=== PATIENT | male | born 1985 | race Caucasian/White ===

== ENCOUNTER 2019-02-03 17:03 | Emergency (ER) | payer OTHER, SELFPAY ==
[2018-12-29 08:33] VITALS: BMI 22.8
[2019-02-03 17:04] VITALS: BP 129/72; PULSE 81; RESP 16; TEMP 36.6; O2SAT 98; BMI 23.7
--- NOTE | 2019-02-03 17:27 | US_ITS ---
STUDY: SCROTUM ULTRASOUND REASON FOR EXAM: Male, 33 years old. PAIN-RT SIDED S/P VASECTOMY 01/28/19 TECHNIQUE: Ultrasound evaluation of the scrotum was performed with color Doppler and static atkins-scale imaging. COMPARISON: None. FINDINGS: RIGHT TESTICLE INTRATESTICULAR: There is a normal size of the right testicle. The right testicle measures 3.9 x 2.9 x 2.0 cm. There is a homogenous echotexture. There is normal arterial and normal venous vascularity. There is no demonstrated right testicular mass or cyst. EXTRATESTICULAR: The epididymis is normal in size. The epididymis head measures 0.8 x 0.9 x 1.0 cm. There is normal vascularity of the epididymis. There is a 4 mm epididymal cyst. There is no demonstrated hydrocele. There is no demonstrated varicocele. There is a complex structure within the superior aspect of the scrotum possibly related to a complex collection or hematoma. LEFT TESTICLE Status post orchiectomy. US/Testicular with Arterial Flow IMPRESSION: Complex area within the superior aspect on the right side of the scrotum possibly related to a complex collection or hematoma. Electronically Signed: Hema Davidson DO at 19:09 EST Tel [phone], Service support ,
--- NOTE | 2019-02-03 17:27 | ED.VIS.GEN ---
History of Present Illness Chief Complaint: Male Pain/Injury Informant: Patient Onset: Days - 2 Context: Gradual Onset Timing: Continuous Quality: sore Location: Right groin, at inguinal area just above scrotum Current Severity: Moderate Maximum Severity: Moderate Worsened by: Walking, palpation Relieved by: Remaining still. Ice, NSAIDs, Tylenol not helping. Narrative: Patient had vasectomy 7 days ago. His surgeon is on vacation and he has not contacted anyone else about this. He has been having postoperative pain ever since and it really has not gotten any better despite doing what he has been told including rest, ice, ibuprofen, and Tylenol. He denies any trouble urinating. He denies any pain where the testicle is distally, closer to the incision, but he has had a new bruising started yesterday along with significant increase in pain more proximally in this hemiscrotum on the right. He had an undescended left testicle and had an orchiectomy when he was little. Past Medical History - Allergies and Home Meds Allergies/Adverse Reactions: Allergies No Known Allergies Allergy (Unverified 12/29/18 08:32) Past Medical History: None Surgical History: - - Left orchiectomy. Vasectomy. Lives: Spouse/ Significant Other Smoking Status: Never smoker Review of Systems General: Denies: Chills, Fever, Sweats Gastrointestinal: Reports: - - Right groin/hemiscrotum pain. Denies: Nausea, Vomiting Genitourinary: Denies: Dysuria, Hematuria, Frequency Musculoskeletal: Denies: Neck pain, Back pain, Extremity Pain Skin: Reports: - - Bruising right hemiscrotum. See HPI. Neurological: Denies: Headache, Weakness, Numbness Physical Exam Vital Signs/Narrative: Vital Signs Temp Pulse Resp BP Pulse Ox 02/03/19 17:04 97.9 F 81 16 129/72 H 98 Inital Vital Signs reviewed: Yes General: Well nourished, Well developed, No Acute Distress Head: Normocephalic, Atraumatic : - - He is status post left orchiectomy. Penis is normal-appearing. Normal cremasteric on the right. Skin: Normal color, No rash, - - Significant acute purpuric bruising to the right hemiscrotum, worse proximally which is swollen, there is firm hematoma palpable, all of which is tender in the right inguinal area and into the proximal right hemiscrotum. The testicle is very mildly tender, much less so than the more proximal areas. The surgical incision appears benign, healing well, no sign of infection or dehiscence. There is some mild bruising in the proximal left hemiscrotum as well, this is nontender. Neurological: Alert, Oriented x3, Cranial nerves II-XII grossly intact, Normal Strength, Normal Sensation Psychological: Normal affect, Normal Mood Diagnostic/Tx/Re-eval Clinical Impression(s) from Imaging Studies Testicular Ultrasound 02/03/19 17:27 IMPRESSION: Complex area within the superior aspect on the right side of the scrotum possibly related to a complex collection or hematoma. Electronically Signed: Hema Davidson DO at 19:09 EST Tel [phone], Service support , - Medical Decision Making There is no one automation tender for urology to discuss this with. My feeling is that the testicle is probably fine, and he has some delayed postoperative bleeding from somewhere in the right hemiscrotum, likely responsible for the increased bruising suddenly, as well as increased pain. I think he very unlikely has a testicular problem here, however I have no other way to evaluate this other than ultrasound, and the tech must be called in since it is a holiday. Ultrasound was obtained, and shows complex area consistent with hematoma, which is consistent with my clinical diagnosis as above. Patient was reassured. He should follow-up with urology as soon as they are available. He will be offered something more for pain. ED Disposition - Plan for ED Patient: Disposition: Home or Assisted Living Diagnosis: Nontraumatic hematoma of scrotum Instructions: CONTUSION, Testicles or Scrotum Prescriptions: Hydrocodone Bitart/Apap 5-325 [[place] 5MG-325MG] 1 tab PO Q4H PRN PRN 2 Days #12 tab PRN Reason: Pain Prescription Printed Referrals: Bharath Leary MD [STAFF PHYSICIAN] - As soon as possible
== END 2019-02-03 19:46 | disposition home or self-care (01) ==
PROVIDERS: Emergency Provider Emergency Medicine; Family Provider Family Medicine; PCP Family Medicine
DX: R10.31 Right lower quadrant pain (principal); N50.1 Vascular disorders of male genital organs
CPT/HCPCS: 76870; 93976; 99282

== ENCOUNTER → 2020-12-12 16:46 | Outpatient (CLI) | payer OTHER, SELFPAY ==
--- NOTE | 2020-12-12 16:53 | CT_ITS ---
STUDY: CT SOFT TISSUE NECK WITHOUT CONTRAST REASON FOR EXAM: Male, 35 years old. K11.6 RADIATION DOSAGE (If Supplied By Facility): CTDIvol = ( 16.02 ) mGy, DLP = ( 477.97 ) mGycm TECHNIQUE: The patient was scanned in a multi-detector CT scanner. High resolution transaxial imaging was performed without the administration of intravenous contrast material. Sagittal and coronal images were reconstructed. Individualized dose optimization techniques were used for this CT. COMPARISON: None. FINDINGS: Normal bilateral parotid glands. Normal bilateral quality tester spaces. Normal bilateral parapharyngeal spaces. Normal bilateral carotid spaces. Enlargement of the left submandibular gland without discrete mass but there is no contrast. Correlation with ultrasound may be useful to describe a discrete mass within the gland. Normal visualized nasopharynx. Normal retropharyngeal space. Normal perivertebral space. Normal visualized bilateral faucial tonsils. The visualized tongue, tongue base and oropharynx are normal. The visualized cervical lymph nodes (levels I-) are within normal size limits, and maintain normal morphology. There is no demonstrated solid or cystic mass lesion. Normal epiglottis, bilateral vallecula and hypopharynx. The pre-epiglottic and paraglottic adipose spaces are normal. Normal visualized bilateral piriform sinuses, aryepiglottic folds, vocal cords, and arytenoid-cricoid articulations. Normal subglottic trachea. Normal bilateral lobes of the thyroid gland. Normal visualized pulmonary apices. Air-fluid levels in the maxillary sinuses consistent with acute sinusitis. Normal visualized cervical spine. CT/Soft Tissue Neck without Contr IMPRESSION: 1. Enlargement of the left submandibular gland and correlation with ultrasound or CT with contrast would be useful to evaluate for discrete mass. 2. Acute maxillary sinusitis. Electronically Signed: Dimas Nina MD at 9:05 EDT Tel , Service support ,
--- NOTE | 2020-12-15 07:29 | CT_ITS ---
STUDY: CT SOFT TISSUE NECK WITH CONTRAST REASON FOR EXAM: Male, 35 years old. SUBMANDIBULAR RANULA. Cystic mass at the floor the mouth. RADIATION DOSAGE (If Supplied By Facility): CTDIvol = ( 11.91 ) mGy, DLP = ( 470.92 ) mGycm TECHNIQUE: The patient was scanned in a multi-detector CT scanner. High resolution transaxial imaging was performed following intravenous administration of IV 100mL Isovue-370. Sagittal and coronal images were reconstructed. Individualized dose optimization techniques were used for this CT. COMPARISON: Comparison is made with prior study dated 12/12/2020. FINDINGS: Normal bilateral parotid glands. Normal bilateral pipe insulator spaces. Normal bilateral parapharyngeal spaces. Normal bilateral carotid spaces. There is a 3.1 cm x 6 cm x 2.8 cm predominantly cystic mass in the left submandibular space. This extends caudally to the region of the hyoid bone. Normal visualized nasopharynx. Normal retropharyngeal space. Normal perivertebral space. Normal visualized bilateral faucial tonsils. The visualized tongue, tongue base and oropharynx are normal. The visualized cervical lymph nodes (levels I-) are within normal size limits, and maintain normal morphology. There is no demonstrated solid or cystic mass lesion. There is no abnormal contrast enhancement. Normal epiglottis, bilateral vallecula and hypopharynx. The pre-epiglottic and paraglottic adipose spaces are normal. Normal visualized bilateral piriform sinuses, aryepiglottic folds, vocal cords, and arytenoid-cricoid articulations. Normal subglottic trachea. Normal bilateral lobes of the thyroid gland. Normal visualized pulmonary apices. Air fluid level in the left maxillary sinus. Mucosal thickening of the right maxillary sinus. Normal visualized cervical spine. CT/Soft Tissue Neck WITH Contrast IMPRESSION: 3.1 cm x 6 x 2.8 cm nonspecific cystic mass in the left some fibular space. This extends caudally to the region of the hiatal bone on the left side Electronically Signed: Luke Parks MD at 9:15 EDT , Service support ,
== END ==
PROVIDERS: PCP Family Medicine; Referring Provider Dentist Oral and Maxillofacial Surgery; Visit Provider Dentist Oral and Maxillofacial Surgery
DX: K11.6 Mucocele of salivary gland (principal); K09.8 Other cysts of oral region, not elsewhere classified
CPT/HCPCS: 70490; 70491; Q9967

== ENCOUNTER → 2020-12-28 09:03 | Outpatient (CLI) | payer OTHER, SELFPAY ==
--- NOTE | 2020-12-28 | ASPOS_PTH ---
PATIENT: VIRAJ WEBSTER LOC: [facility] U#:[id number] AGE/SX: 39/M ROOM: RE12/28/[address]: Dr. Marty Villareal MD : 1985 BED: DIS: SPEC #: [id number] RECD: 12/28/20 10:00 STATUS: SALO REYNOLDSMelvin #: [id number] JONH: 12/28/20 00:[address]: Marty Villareal DEPT: CYTOLOGY RECD BY: Beata Donald ENTERED: 12/28/20 10:32 SP TYPE: ASP HERE OTHR DR: Dr. Isaiah Penaloza MD Tissues: Neck, NOS Procedures: Surgery Specimen Level IV Cytology Other Fine Needle Asp on Site HEADER OPERATION: Left neck mass, fine needle aspiration PRE-OP DIAGNOSIS: Left neck mass TISSUE SUBMITTED: Left neck mass DIAGNOSIS CYTOLOGY Fine needle aspiration, left neck mass (smears and cell block): Negative for malignant cells. Consistent with benign cyst contents. AM:rachel 12/29/2020 COMMENT The specimen is evaluated at the time of FNA by Dr. Willson. Immediate Evaluation = Consistent with contents of benign cyst. CYTOLOGY STUDY Slides are reviewed. CYTOLOGY GROSS Received is 1 ml of yellow mucoid material labeled with the patient's name, and designated left neck mass. Four imprints and two paps are made from the submitted fluid and the rest is added to CytoLyt for cell block preparation. Submitted for cytology study. / AM:rachel 12/28/2020 TC:5 CPT: 46605, 74020, 50207, 56747
== END ==
PROVIDERS: PCP Family Medicine; Referring Provider Otolaryngology; Visit Provider Otolaryngology
DX: R22.1 Localized swelling, mass and lump, neck (principal)
CPT/HCPCS: 10021; 88161; 88305

== ENCOUNTER 2021-01-29 08:11 | Day surgery (SDC) | payer OTHER, SELFPAY ==
--- NOTE | 2021-01-29 | MISC_PTH ---
PATIENT: VIRAJ WEBSTER LOC: [facility] – [place] U#:[id number] AGE/SX: 35/M ROOM: RE01/29/[address]: Dr. Marty Villareal MD : 1985 BED: DIS: 01/29/2021 SPEC #: [id number] RECD: 01/29/21 13:50 STATUS: SALO REMelvin #: [id number] JONH: 01/29/21 00:[address]: Marty Villareal DEPT: SURGICAL PATHOLOGY RECD BY: Julien Aguila ENTERED: 01/29/21 13:51 SP TYPE: [facility] [place]: Dr. Isaiah Penaloza MD Tissues: Sublingual gland, NOS Procedures: Surgery Specimen Level V HEADER OPERATION: Neck mass excision PRE-OP DIAGNOSIS: Localized swelling, neck mass and lump TISSUE SUBMITTED: Left sublingual gland MICROSCOPIC DIAGNOSIS Left sublingual gland, excision: Consistent with mucocele. 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 AM:rachel 01/30/2021 COMMENT Reference is made to the patient's fine needle aspiration ([id number]) in which contents of benign cyst were identified. MICROSCOPIC DESCRIPTION Slides are reviewed. GROSS DESCRIPTION Received in fixative is one container labeled with the patient's name and designated left submandibular gland. The specimen consists of two irregular fragments of rubbery pink-ga tissue that in aggregate measure 4.5 x 2.5 x 0.8 cm. Serial sections reveal homogenous yellow-pink cut surfaces. No distinct mass lesion is identified. The specimen is sectioned and totally submitted in four cassettes. / AM:rachel 01/29/21 TC:3 CPT: 52278
[2021-01-29 08:33] VITALS: BP 118/72; PULSE 52; RESP 16; TEMP 36.2; O2SAT 100; BMI 25.0
[2021-01-29] MEDS: Lactated Ringers 1,000 ML 15 ML IV (08:44)
--- NOTE | 2021-01-29 10:02 | PCM.DC ---
Discharge Instructions Diet Discharge Diet: - (clear diet for 24 hours, may have some soft foods. slowly progress afterward) Activity Discharge Activity: No Restrictions Dressing / Incision Call your doctor if your incision/area has: Sudden Increased Bleeding Additional Dressing/Incision Instructions:: mupirocin to neck incision three times daily Follow Up Care Please Follow Up With: Cristopher Villareal MD When: 2 days Test Results: Test results from this visit will be discussed in further detail at your follow-up appointment, if applicable. Discharge Plan Admission Attending Provider: Cristopher Villareal Primary Care Provider: Isaiah Penaloza Discharge Orders/Prescriptions Prescriptions: No Action cetirizine [Zyrtec] 5 mg Tablet 5 mg PO DAILY RF: 0 Disposition Discharge Orders: Discharge Patient (Routine); Ordered 01/29/21 Ordered By: Dr. Cristopher Villareal
--- NOTE | 2021-01-29 10:04 | OP.PCM_ITS ---
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 transoral sublingual gland excision with ranula, left 2. transcervical excision ranula, left Surgeon: Cristopher Villareal tinsel machine operator: Noe Marquez Type of Anesthesia: General Description of Procedure: on the day of the procedure after appropriate informed consent was obtained, the patient was brought to the operating room and placed in supine position on the operating table. he was placed under general endotracheal anesthesia by the anesthesiologist; the endotracheal tube was secured, the eyes were taped. the table was rotated 90 degrees toward the anesthesiologist. a left transverse incision was marked 2 cm inferior to the mandibular angle. a bite block was placed in the mouth and retractors were placed to depress the mandible. the tongue was retracted and the left sublingual mucocele was exposed. the floor of mouth was injected with lidocaine/epinephrine. an incision was made with a 15 blade along the medial mandibular edge. the mucocele was exposed with an iris scissor. a lacrimal probe was placed in rhonda's duct for identification. the sublingual gland was dissected with an iris scissor and the bovie. the lingual nerve was identified and traced with a crile. this was preserved. the sublingual gland was circumferentially removed. hemostasis was achieved with the bipolar. a small rent was noticed in the floor of the excision site. the neck was compressed and 5cc of serous fluid was evacuated. the rent was sutured with 4-0 chromic. the incision was closed with interrupted 4-0 chromic. the table was rotated 90 degrees toward the anesthesiologist. he was brought out of anesthesia and transferred to the PACU in stable condition.
[2021-01-29 13:01] VITALS: BP 118/72; BP 121/69; PULSE 61; RESP 16; TEMP 36; O2SAT 99
[2021-01-29 13:15] VITALS: BP 109/71; BP 118/72; PULSE 54; RESP 16; O2SAT 100
[2021-01-29 13:35] VITALS: BP 108/76; BP 118/72; PULSE 55; RESP 16; TEMP 36.1; O2SAT 100
[2021-01-29] MEDS: HYDROcodone Bitartrate/Apap 5/325 Tablet PO (14:31)
[2021-01-29 15:31] VITALS: BP 111/63; BP 118/72; PULSE 58; RESP 16; TEMP 36.2; O2SAT 99
== END 2021-01-29 15:34 | disposition home or self-care (01) ==
LOC: SDC 08:13 → AC 08:14
PROVIDERS: PCP Family Medicine; Referring Provider Otolaryngology; Visit Provider Otolaryngology
PROC: (CPT 42409; principal; 2021-01-29 09:45)
DX: K11.6 Mucocele of salivary gland (principal); K11.23 Chronic sialoadenitis; K11.1 Hypertrophy of salivary gland
CPT/HCPCS: 00100; 42409; 88305; 88307; J7120; J2405

== ENCOUNTER 2023-06-25 18:23 | Emergency (ER) | payer OTHER, SELFPAY ==
[2023-06-25 18:26] VITALS: BP 150/109; PULSE 105; RESP 18; TEMP 36.2; O2SAT 96; BMI 27.8
--- NOTE | 2023-06-25 20:16 | EX.ED.DYSGE1 ---
HPI History of Present Illness Chief Complaint: Rash Onset/Context/Timing Onset: Weeks (2) Context: Gradual Onset Timing: Continuous Quality: Itchy, swelling, [id number] Location: Right axilla, posterior upper arm, and posterior scapula Worsened by: Nothing Relieved by: Nothing Narrative Narrative: Patient presents with rash that began 2 weeks ago. Patient states that he felt some itching and pins and needle sensation in his right axilla. Patient states that he noted some swelling. Patient states he went to the urgent care and was started on prednisone 1 week ago. Patient states he was diagnosed with swollen lymph nodes in his right axilla. Patient admits to some subjective fevers. Patient states that he noted the rash over the posterior aspect of his right shoulder and into his right proximal upper arm yesterday. Patient denies any discharge or drainage. Patient admits to some subjective fevers. Patient admits to a sore throat. Patient admits to some nausea but denies any vomiting. [facility] Medical History (Updated 06/25/23 @ 20:[address] Hever Vick DO) Wears glasses Alcohol use Depression Anxiety removal of left teste Home Medications ?Medication ?Instructions ?Recorded ?Last Taken ?Type prednisone 10 mg tablet 10 mg PO QDAY 12 days #30 tabs 06/19/23 Unknown Rx valacyclovir 1 gram tablet 1,000 mg PO TID #20 tabs 06/25/23 Unknown Rx (Valtrex) Allergy/AdvReac Type Severity Reaction Status Date / Time No Known Allergies Allergy Verified 06/25/23 18:26 Surgical History (Updated 06/25/23 @ 20:[address] Hever Vick DO) Hx of unilateral orchiectomy History of sinus surgery H/O vasectomy Social History Smoking Status: Never smoker alcohol intake: current ROS ROS ED Constitutional Constitutional ED: Reports fever(s) and subjective; Denies chills Eyes Eyes: Denies blurry vision or change in vision ENT ENT ED: Reports sore throat; Denies rhinorrhea Cardiovascular Cardiovascular: Denies chest pain or palpitations Respiratory/Chest Respiratory/Chest: Reports dyspnea; Denies cough Gastrointestinal Gastrointestinal: Reports nausea; Denies vomiting Genitourinary Genitourinary ED: Denies dysuria or hematuria Musculoskeletal Musculoskeletal: Reports back pain and neck pain Integumentary Reports rash; Denies abscess Neurologic Neurologic: Denies headache(s) or weakness Allergic/Immunologic Allergic/Immunologic ED: Denies mouth swelling or urticaria EXAM Physical Exam Const Vital Signs: 06/25/23 18:26 Temperature 97.1 F L Temperature Source Temporal Pulse Rate 105 H Respiratory Rate 18 Blood Pressure 150/109 H Blood Pressure Mean 122 Pulse Ox 96 Oxygen Delivery Method Room Air Positive well nourished, well developed, alert, oriented x3 and no apparent distress General Appearance ED: well developed HEENT Reports normocephalic normocephalic Neck full ROM, supple and no JVD Chest Wall inspection of chest normal and palpation of chest normal Resp normal respiratory effort and clear to auscultation bilaterally Cardio regular rate and regular rhythm GI soft to palpation, non-tender and non-distended Palpation: soft Neuro oriented x3, CN's II-XII intact bilaterally, moves all extremities, no focal motor deficits and no sensory deficits noted Ayana Coma Scale: document GCS findings Spontaneous Obeys Commands Oriented 15 Sensorium / Orientation: awake and alert Speech: speech normal Psych mental status grossly normal, thought process normal and cooperative Skin Skin Narrative: There is a patchy erythematous rash over the posterior aspect of the right scapula and upper arm. There are areas of vesicles. There is no discharge or drainage noted. There is mild tenderness. There are no pustules noted. There are no petechia noted. MDM MDM MDM Narrative Medical decision making narrative: Patient was advised that the rash appears to be consistent with herpes zoster. Patient was instructed to stop his prednisone. Patient was given a dose of Valtrex here. Patient is given a prescription for Valtrex. Patient was instructed to follow-up with his primary care physician in 5 to 7 days. Patient was instructed to return if worse in any way. Patient understood and was agreeable with the plan. All questions were answered. Discharge Plan Triage Chief Complaint: Rash ED Provider: Hever Vick Dx/Rx/DC Orders Clinical Impression: Herpes zoster dermatitis, Herpes zoster, Dermatitis Instructions: ED Shingles (Herpes Zoster) Prescriptions: New valacyclovir [Valtrex] 1 gram tablet 1,000 mg PO TID Qty: 20 0RF No Action prednisone 10 mg tablet 10 mg PO QDAY 12 Days Qty: 30 0RF Rx Instructions: Take 4 tabs once daily days 1-3 3 tabs once daily days 4-6 2 tabs once daily days 7-9 and 1 tab once daily days 10-12. Primary Care Provider: Sajan Acuña Referrals: Sajan Acuña DO [Primary Care Provider] - 5-7 Days Print Language: Other Disposition Disposition: Home, Self Care
[2023-06-25] MEDS: Acyclovir 800 MG Tablet PO (20:50)
[2023-06-25 20:53] VITALS: BP 128/85; PULSE 81; RESP 16; TEMP 36.6; O2SAT 94
== END 2023-06-25 20:55 | disposition home or self-care (01) ==
PROVIDERS: Emergency Provider Emergency Medicine; PCP Family Medicine; Visit Provider Emergency Medicine
DX: B02.8 Zoster with other complications (principal); L30.8 Other specified dermatitis
CPT/HCPCS: 99282